=== PATIENT | male | born 1970 | race Caucasian/White ===

== ENCOUNTER 2019-06-18 11:57 | Emergency (ER) | payer OTHER ==
[~2019-06-18] VITALS: Ht 167.6 cm; Wt 122.5 kg
[2019-06-18 13:28] LABS: BASOPHILS # (AUTO) 0.2 (0.0-0.1); BASOPHILS % 1.3 % (0.0-1.0); EOSINOPHILS # (AUTO) 0.5 (0.0-0.4); HEMATOCRIT 47.5 % (38.2-49.6); HEMOGLOBIN 16.3 g/dL (14.0-18.0); LYMPHOCYTES # (AUTO) 2.4 (1.0-3.2); MEAN CORPUSCULAR HEMOGLOBIN 29.8 pg (28-32); MEAN CORPUSCULAR HGB CONC 34.3 g/dL (31-35); MEAN CORPUSCULAR VOLUME 86.8 fL (81-99); MONOCYTES # (AUTO) 1.5 (0.2-0.8); MONOCYTES % 12.5 % (4.4-11.3); NEUTROPHILS # (AUTO) 7.3 (2.1-6.9); NEUTROPHILS % 61.4 % (38.7-80.0); PLATELET COUNT 303 x10e3/uL (140-360); RED BLOOD COUNT 5.47 x10e6/uL (4.3-5.7); RED CELL DISTRIBUTION WIDTH 12.5 % (11.7-14.4)
[2019-06-18 13:29] LABS: CLARITY,URINE CLEAR (CLEAR); COLOR,URINE YELLOW (YELLOW)
[2019-06-18 13:30] LABS: BILIRUBIN,URINE NEGATIVE (NEGATIVE); KETONES,URINE NEGATIVE (NEGATIVE); LEUKOCYTE ESTERASE ,URINE NEGATIVE (NEGATIVE); NITRITE,URINE NEGATIVE (NEGATIVE); PROTEIN,URINE DIPSTICK NEGATIVE (NEGATIVE); URINE UROBILINOGEN 0.2 mg/dL (0.2 - 1)
[2019-06-18 13:42] LABS: BACTERIA,URINE RARE /HPF; EPITHELIAL CELLS,URINE FEW /LPF; RBC,URINE 0-5 /HPF (0-5); WBC,URINE (MAN) 0-5 /HPF (0-5)
[2019-06-18 13:43] LABS: ANION GAP 13.9 mmol/L (8-16); BLOOD UREA NITROGEN 20 mg/dL (7-26); BUN/CREATININE RATIO 16 (6-25); CALCIUM 9.6 mg/dL (8.4-10.2); CARBON DIOXIDE 24 mmol/L (22-29); CHLORIDE 106 mmol/L (98-107); CREATININE, SERUM 1.24 mg/dL (0.72-1.25); EST GLOMERULAR FILTRATION RATE > 60 ML/MIN (60-); GLUCOSE 106 mg/dL (74-118); POTASSIUM 3.9 mmol/L (3.5-5.1); SODIUM 140 mmol/L (136-145)
--- NOTE | 2019-06-18 14:57 | Diagnostic Imaging Report ---
CT of the abdomen and pelvis, without contrast, 06/18/2019. History: Abdominal pain, trouble with urination. Comparison: None available. Technique: Multidetector CT scanning of the abdomen and pelvis was performed from the level of the lung bases to the inferior pubic rami without intravenous or oral contrast. Coronal and sagittal multiplanar reformations were obtained. RADIATION DOSE: Total DLP: 568 mGy*cm Dose modulation, iterative reconstruction, and/or weight based adjustment of the mA/kV was utilized to reduce the radiation dose to as low as reasonably achievable. Discussion: Examination is limited without contrast. Lung bases: No visualized abnormalities. Abdomen: There is mild left hydronephrosis and hydroureter down to the bladder, where a 4 mm stone is present at the left ureterovesicular junction. No other stones are seen within the left kidney. A 2.7 x 3.0 cm oval hypodense structure is present in the left adrenal gland measuring -18 Hounsfield units in density. The liver, gallbladder, biliary tree, spleen, pancreas, and right adrenal gland are unremarkable. The abdominal aorta is within normal limits. There is no bowel dilatation. The appendix is visualized and is normal. There is no evidence of adenopathy or free fluid. Pelvis: The bladder contains a Velazco catheter and is collapsed. Left UV junction stone is noted as described above. Prostate and seminal vesicles are unremarkable. Right fat-containing inguinal hernia is present. There is no evidence of free fluid or adenopathy. Bones and soft tissues: Degenerative changes are present throughout the lumbar spine without evidence of lytic or sclerotic lesion. IMPRESSION: 1. 4 mm stone at the left ureterovesicular junction causing mild left hydronephrosis. 2. Benign left adrenal adenoma. No follow-up imaging needed. 3. Fat-containing right inguinal hernia. Otherwise unremarkable noncontrast exam. Signed by: Macario Finnegan on 06/18/2019 2:54 PM
[2019-06-18] MEDS ORDERED: TYLENOL WITH C1 EACH PO (15:42)
== END 2019-06-18 16:10 | disposition home or self-care (01) ==
LOC: ER 11:57
DX: R10.30 Lower abdominal pain, unspecified (principal); N20.1 Calculus of ureter; I10 Essential (primary) hypertension; K40.90 Unilateral inguinal hernia, without obstruction or gangrene, not specified as recurrent; F17.210 Nicotine dependence, cigarettes, uncomplicated
CPT/HCPCS: 36415; 74176; 80048; 81001; 85025; 99284

== ENCOUNTER → 2019-06-28 | Outpatient (CLI) | payer OTHER ==
[~2019-06-28] MED LIST: TYLENOL WITH C1 EACH PO
--- NOTE | 2019-06-28 11:15 | Diagnostic Imaging Report ---
Exam: KUB Comparison: CT abdomen and pelvis, June 18, 2019 Clinical history: Renal calculus Findings: There is no evidence of radiopaque stones in the region of bilateral kidneys. Multiple subcentimeter round calcific density structures are noted in the pelvic region and is difficult to discern if the previously seen left UVJ stone has resolved. There is nonobstructive bowel gas pattern. The regional osseous structures are unremarkable. Impression: 1. Multiple round calcific density structures are noted in bilateral pelvic region likely represent phleboliths. However, the previously seen left UVJ stone may represent one of the calcific densities. If clinically indicated, CT is recommended for further assessment. Signed by: Dr. Brando Randall MD on 06/28/2019 11:13 AM
--- NOTE | 2019-06-28 11:22 | Diagnostic Imaging Report ---
Renal ultrasound Clinical History: Hydronephrosis Discussion: Sonographic evaluation of the kidneys is performed. The kidneys have normal size and cortical echogenicity. The right kidney measures 11.4 cm in length. The left kidney measures 11.7 cm in length. There is no focal renal mass, hydronephrosis, or shadowing renal calculus. No perinephric fluid collection is seen. Survey images of the bladder demonstrate no abnormality. Impression: Normal sonographic evaluation of the kidneys. Signed by: Dr. Brando Randall MD on 06/28/2019 11:20 AM
== END ==
LOC: US 10:22
PROVIDERS: ATTEND Urology
DX: N20.0 Calculus of kidney (principal); N13.30 Unspecified hydronephrosis
CPT/HCPCS: 74018; 76770

== ENCOUNTER → 2022-09-07 | Day surgery (SDC) | payer OTHER ==
[~2022-09-07] MED LIST changes: +ASPIRIN325 MG PO; +BRILINTA90 MG PO; +FENTANYL CITRATE/PF 100MCG/2 ML INJ ONE; +HYOSCYAMINE SULFATE 0.5 MG/ML INJ ONE; +LACTATED RINGER'S 1,000 ML ONE; +LIDOCAINE HCL 2% LOCAL INJ 5 ML SDV VIAL INJ ONE; +LIPITOR10 MG PO; +METOPROLOL TART50 MG PO; +MIDAZOLAM HCL 2 MG/2 ML VIAL ONE; +PANTOPRAZOLE SO40 MG PO; +PROPOFOL IV EMULSION 10 MG/ML 20 ML VIAL ONE; +XIGDUO PO; +ZESTRIL10 MG PO
[2022-09-07 15:40] VITALS: BP 112/68
[2022-09-07 16:49] LABS: WBC,FECAL (FECAL LACTOFERRIN) NEGATIVE (NEGATIVE)
== END | disposition home or self-care (01) ==
LOC: OR 11:56
PROVIDERS: ATTEND Internal Medicine Gastroenterology
DX: K59.09 Other constipation (principal); K63.89 Other specified diseases of intestine; K52.9 Noninfective gastroenteritis and colitis, unspecified; L29.0 Pruritus ani; K57.30 Diverticulosis of large intestine without perforation or abscess without bleeding; K62.89 Other specified diseases of anus and rectum; K64.8 Other hemorrhoids; Z71.3 Dietary counseling and surveillance; R73.03 Prediabetes; I25.2 Old myocardial infarction; I10 Essential (primary) hypertension; Z71.89 Other specified counseling; E78.00 Pure hypercholesterolemia, unspecified; Z79.84 Long term (current) use of oral hypoglycemic drugs; Z79.82 Long term (current) use of aspirin; Z79.899 Other long term (current) drug therapy; Z68.41 Body mass index [BMI] 40.0-44.9, adult; Z86.16 Personal history of COVID-19
CPT/HCPCS: 36415; 45380; 82948; 83630; 83993; 87045; 87177; 87324; 87328; 87449; 93005; J1980; J2001; J2250; J2704; J3010; J7121; 45378

== ENCOUNTER 2024-07-08 01:13 | Emergency (ER) | payer OTHER ==
[~2024-07-08] VITALS: Ht 167.6 cm; Wt 77.1 kg
[~2024-07-08 01:13] MED LIST changes: -FENTANYL CITRATE/PF 100MCG/2 ML INJ ONE; -HYOSCYAMINE SULFATE 0.5 MG/ML INJ ONE; -LACTATED RINGER'S 1,000 ML ONE; -LIDOCAINE HCL 2% LOCAL INJ 5 ML SDV VIAL INJ ONE; -MIDAZOLAM HCL 2 MG/2 ML VIAL ONE; -PROPOFOL IV EMULSION 10 MG/ML 20 ML VIAL ONE
[2024-07-08 01:35] LABS: BASOPHILS # (AUTO) 0.1 (0.0-0.1); BASOPHILS % 0.9 % (0.0-1.0); EOSINOPHILS # (AUTO) 0.1 (0.0-0.4); EOSINOPHILS % 1.3 % (0.0-6.0); HEMATOCRIT 43.9 % (38.2-49.6); HEMOGLOBIN 15.3 g/dL (14.0-18.0); LYMPHOCYTES # (AUTO) 2.3 (1.0-3.2); LYMPHOCYTES % 21.6 % (18.0-39.1); MEAN CORPUSCULAR HEMOGLOBIN 29.2 pg (28-32); MEAN CORPUSCULAR HGB CONC 34.9 g/dL (31-35); MEAN CORPUSCULAR VOLUME 83.8 fL (81-99); MONOCYTES % 8.8 % (4.4-11.3); NEUTROPHILS # (AUTO) 7.3 (2.1-6.9); NEUTROPHILS % 67.1 % (38.7-80.0); PLATELET COUNT 354 x10e3/uL (140-360); RED BLOOD COUNT 5.24 x10e6/uL (4.3-5.7); RED CELL DISTRIBUTION WIDTH 11.9 % (11.7-14.4); WHITE BLOOD COUNT 10.82 x10e3/uL (4.8-10.8)
[2024-07-08] MEDS: Morphine 4mg INJECTION 4 MG/ML INJ IV STA (01:58)
[2024-07-08] MEDS: ONDANSETRON HCL INJ 2MG/ML 2ML 2 MG/ML VIAL IV STA (01:59)
[2024-07-08] MEDS: SODIUM CHLORIDE 0.9% 1000ML 1,000 ML IV STA (01:59)
[2024-07-08 02:05] LABS: ALBUMIN 4.1 g/dL (3.5-5.0); ALBUMIN/GLOBULIN RATIO 1.2 (0.8-2.0); ANION GAP 25.3 mmol/L (8-16); BILIRUBIN,TOTAL 0.5 mg/dL (0.2-1.2); CALCIUM 10.3 mg/dL (8.4-10.2); CREATININE, SERUM 1.63 mg/dL (0.72-1.25); POTASSIUM 4.3 mmol/L (3.5-5.1); TOTAL PROTEIN 7.6 g/dL (6.5-8.1)
[2024-07-08 02:07] LABS: CLARITY,URINE CLEAR (CLEAR); COLOR,URINE YELLOW (YELLOW)
[2024-07-08 02:08] LABS: BILIRUBIN,URINE LARGE (NEGATIVE); GLUCOSE, URINE 500 (NEGATIVE); KETONES,URINE 2+ (NEGATIVE); LEUKOCYTE ESTERASE ,URINE NEGATIVE (NEGATIVE); NITRITE,URINE NEGATIVE (NEGATIVE); PH,URINE 5.5 (5 - 7); PROTEIN,URINE DIPSTICK >=300 (NEGATIVE); URINE UROBILINOGEN 0.2 mg/dL (0.2 - 1)
[2024-07-08 02:13] LABS: TROPONIN I 0.07 ng/mL (0.0-0.40)
[2024-07-08] MEDS ORDERED: IOPAMIDOL 370 MG/ML 100 ML INFUS..BTL INJ ONE (02:26)
[2024-07-08 02:32] LABS: BACTERIA,URINE MANY /HPF
[2024-07-08 02:33] LABS: EPITHELIAL CELLS,URINE FEW /LPF
[2024-07-08 03:04] VITALS: PULSE 93; RESP 20; TEMP 98.3
[2024-07-08] MEDS ORDERED: ONDANSETRON ODT4 MG PO (03:05)
[2024-07-08] MEDS ORDERED: ULTRAM 50MG50 MG PO (03:05)
[2024-07-08 03:14] VITALS: BP 131/96; O2SAT 98
== END 2024-07-08 03:15 | disposition home or self-care (01) ==
LOC: ER 01:22
DX: R10.31 Right lower quadrant pain (principal); R11.2 Nausea with vomiting, unspecified; I10 Essential (primary) hypertension; E11.9 Type 2 diabetes mellitus without complications; E78.5 Hyperlipidemia, unspecified; R94.31 Abnormal electrocardiogram [ECG] [EKG]; E66.01 Morbid (severe) obesity due to excess calories; I25.2 Old myocardial infarction; Z87.442 Personal history of urinary calculi
CPT/HCPCS: 36415; 74177; 80053; 81001; 82550; 83690; 84484; 85025; 93005; 99284; J2270; J2405; J7030; Q9967

== ENCOUNTER → 2024-08-04 | Day surgery (SDC) | payer OTHER ==
[~2024-08-04] MED LIST changes: +ACETAMINOPHEN 1000 MG/100 ML 100 ML IV ONE; +AMLODIPINE BESYL5 MG PO; +CRESTOR40 MG PO; +DEXAMETHASONE SOD PHOS INJ 4 MG/ML SDV ONE; +FENTANYL CITRATE/PF 100MCG/2 ML INJ ONE; +LIDOCAINE HCL 2% LOCAL INJ 5 ML SDV VIAL INJ ONE; +MOUNJARO10 MG/0.5 SC; +ONDANSETRON HCL INJ 2MG/ML 2ML 2 MG/ML VIAL ONE; +ONDANSETRON ODT4 MG PO; +PROPOFOL IV EMULSION 10 MG/ML 20 ML VIAL ONE; +SEVOFLURANE INHAL SOLN 250 ML PEN BTL ONE; +TERBINAFINE HC250 MG PO; +ULTRAM 50MG50 MG PO; +ZETIA10 MG PO
[2024-08-04] MEDS: LACTATED RINGER'S 1,000 ML ONE (07:28)
[2024-08-04 11:14] VITALS: TEMP 97
[2024-08-04] MEDS: HYDROCODONE/APAP 7.5MG-325MG 1 EA TAB ONE (11:48)
[2024-08-04 12:15] VITALS: BP 122/87; PULSE 72; RESP 16; O2SAT 98
== END | disposition home or self-care (01) ==
LOC: OR 06:53
PROVIDERS: ATTEND Surgery
DX: K40.90 Unilateral inguinal hernia, without obstruction or gangrene, not specified as recurrent (principal); D17.6 Benign lipomatous neoplasm of spermatic cord; G47.33 Obstructive sleep apnea (adult) (pediatric); E11.9 Type 2 diabetes mellitus without complications; I10 Essential (primary) hypertension; I25.10 Atherosclerotic heart disease of native coronary artery without angina pectoris; I25.2 Old myocardial infarction; K21.9 Gastro-esophageal reflux disease without esophagitis; N20.0 Calculus of kidney; Z88.6 Allergy status to analgesic agent; Z79.82 Long term (current) use of aspirin; Z79.85 Long-term (current) use of injectable non-insulin antidiabetic drugs; Z79.899 Other long term (current) drug therapy; Z95.5 Presence of coronary angioplasty implant and graft
CPT/HCPCS: 49505; 71046; C1781; J0131; J1100; J2003; J2405; J2704; J3010; J7121